=== PATIENT | female | born 1945 | race Caucasian/White ===

== ENCOUNTER → 2017-12-04 | Outpatient (CLI) | payer MEDICARE, OTHER ==
[~2017-12-04] MED LIST: ALAVERT10 M1 PO; ARIMIDEX1 MG PO; BENICAR 20MG TA20 MG PO; CALCIUM 600600 M2 PO; CALTRATE-600 W600 MG PO; CELEBREX 200MG200 MG PO; COLACE 100100 MG/CAP PO; COUMADIN 3MG3 MG/TAB PO; CUTIVATE INH; ESTROGEN PO; FISH OIL1 IU PO; FLONASE NASAL S16 GM NS; FOLIC ACID 40400 MCG PO; FOSAMAX 70MG TA70 MG PO; IRON325 M1 PO; LEVOTHYROXINE0.1 MG PO; LUMIGAN 2.5 ML2.5 ML OD; LUMIGAN EYE GTTS OU; MAG-SO480 MG PO; MAGNESIUM PO; MAREPA1200 MG PO; MILK THISTLE PO; MULTI VITAMINS1 TAB PO; MVI PO; NIACIN PO; NIACIN500 MG PO; NORCO 325 MG-7.1 TAB PO; PRILOSEC 20MG20 MG PO; ROXICODONE 55 MG/TAB; SYNTHROID0.1 MG/TAB PO; TAMOXIFEN CITRA20 MG PO; TRICOR 48MG48 MG PO; TRICOR145 MG PO; VITAMIN C500 MG PO; VITAMIN D31000 IU PO; VYTORIN PO; ZETIA 10MG TAB10 MG PO; ZOCOR 10MG10 MG PO
== END ==
LOC: MC.RAD 14:37
DX: Z12.31 Encounter for screening mammogram for malignant neoplasm of breast (principal); Z85.3 Personal history of malignant neoplasm of breast; Z92.3 Personal history of irradiation; Z98.82 Breast implant status; Z98.890 Other specified postprocedural states

== ENCOUNTER → 2020-10-09 | Outpatient (CLI) | payer MEDICARE, OTHER | LOC: MC.RAD 11:45 | DX: Z12.31 Encounter for screening mammogram for malignant neoplasm of breast (principal); Z98.890 Other specified postprocedural states ==

== ENCOUNTER → 2022-05-13 | Outpatient (CLI) | payer MEDICARE, OTHER | LOC: MC.RAD 09:53 | DX: Z12.31 Encounter for screening mammogram for malignant neoplasm of breast (principal); Z80.3 Family history of malignant neoplasm of breast; Z98.890 Other specified postprocedural states ==

== ENCOUNTER → 2024-06-01 | Outpatient (CLI) | payer MEDICARE, OTHER | LOC: MC.RAD 11:39 | DX: Z12.31 Encounter for screening mammogram for malignant neoplasm of breast (principal) ==